=== PATIENT | male | born 2000 | race Asian ===

== ENCOUNTER → 2021-10-11 13:11 | Outpatient (CLI) | payer BC, SELFPAY | PROVIDERS: Referring Provider Family Medicine; Visit Provider Family Medicine | DX: Z23 Encounter for immunization (principal) ==

== ENCOUNTER 2022-08-13 01:56 | Emergency (ER) | payer BC, SELFPAY ==
[2022-08-13 01:58] VITALS: BP 110/73; PULSE 86; RESP 26; TEMP 35.9; O2SAT 100; BMI 22.6
--- NOTE | 2022-08-13 02:17 | EX.ED.DYSGE1 ---
HPI History of Present Illness Chief Complaint: ETOH Intox Informant: patient and spouse/S.O. Narrative Narrative: Patient arrives with a friend. He drank a fair amount of wine this evening. He feels intoxicated. He vomited several times but no blood. He is still nauseated. He has had no fall trauma or injury. No history of medical problems. No routine medications. Nothing makes his symptoms better or worse. PFSH PFSH Medical History no medical history Home Medications ondansetron 4 mg disintegrating tablet 4 mg PO Q8H PRN nausea and vomiting #4 tabs 08/13/22 [Rx Last Taken Unknown] Allergy/AdvReac Type Severity Reaction Status Date / Time No Known Allergies Allergy Verified 08/13/22 01:58 Surgical History no surgical history Social History Smoking Status: Never smoker ROS ROS ED Constitutional Constitutional ED: Denies fever(s) Eyes Eyes: Denies change in vision ENT ENT ED: Denies rhinorrhea Cardiovascular Cardiovascular: Denies chest pain or palpitations Respiratory/Chest Respiratory/Chest: Denies cough or dyspnea Gastrointestinal Gastrointestinal: Reports nausea and vomiting; Denies abdominal pain Integumentary Denies rash Neurologic Neurologic: Denies headache(s) Hematologic/Lymphatic Hematologic/Lymphatic: Denies easy bleeding or easy bruising Allergic/Immunologic Allergic/Immunologic ED: Denies urticaria EXAM Physical Exam Const Vital Signs: 08/13/22 01:58 Temperature 96.6 F L Temperature Source Oral Pulse Rate 86 Respiratory Rate 26 H Blood Pressure 110/73 Blood Pressure Mean 85 Pulse Ox 100 Oxygen Delivery Method Nasal Cannula Positive well nourished General Appearance ED: NAD HEENT Reports moist mucous membranes Eyes PERRL Neck No supple Resp normal respiratory effort and clear to auscultation bilaterally Cardio regular rate and regular rhythm GI normal to inspection, nondistended, normoactive bowel sounds and non-tender Palpation: soft Back/Spine no CVA tenderness Neuro oriented x3 Psych mental status grossly normal Skin no rashes or lesions noted MDM MDM MDM Narrative Medical decision making narrative: Patient has been observed here for a little over 3 hours. No more vomiting. He is doing better. I will write for a couple Zofran in case he develops further nausea. He can go home rest, drink fluids Tylenol as needed. Avoid drinking in the future. If he develops recurrent vomiting, hematemesis, fevers cough or other problems he should return. Discharge Plan Triage Chief Complaint: ETOH Intox ED Provider: Mehul Marc Dx/Rx/DC Orders Clinical Impression: Alcohol intoxication Instructions: ED Alcohol Intoxication Prescriptions: New ondansetron 4 mg tablet,disintegrating 4 mg PO Q8H PRN (Reason: nausea and vomiting) Qty: 4 0RF Primary Care Provider: Care Physician,No Primary Referrals: Care Physician,No Primary [Primary Care Provider] - Disposition Disposition: Home, Self Care
[2022-08-13] MEDS: Ondansetron ODT 4 MG Tablet PO (02:41)
== END 2022-08-13 05:52 | disposition home or self-care (01) ==
PROVIDERS: Emergency Provider Emergency Medicine; Visit Provider Emergency Medicine
DX: F10.129 Alcohol abuse with intoxication, unspecified (principal)
CPT/HCPCS: 99283